=== PATIENT | male | born 1970 | race Two or more races ===

== ENCOUNTER 2020-11-25 14:58 | Emergency (ER) | payer MEDICAID ==
[~2020-11-25] VITALS: Ht 177.8 cm; Wt 84.4 kg
[2020-11-25 15:30] LABS: Basophils # (auto) 0.1 10 ^3/uL (0-0.2); Basophils % (auto) 0.7 % (0.0-2.0); Eosinophils # (auto) 0.1 10 ^3/uL (0-0.8); Eosinophils % (auto) 0.7 % (0.0-7.0); Hematocrit 44.7 % (41.0-53.0); Hemoglobin 15.2 g/dL (13.5-17.5); Lymphocytes # (auto) 1.5 10 ^3/uL (0.4-5.4); Lymphocytes % (auto) 14.7 % (10.0-50.0); Mean Corpuscular Volume 88.2 fL (80.0-100.0); Monocytes # (auto) 0.7 10 ^3/uL (0-1.3); Monocytes % (auto) 6.5 % (0.0-12.0); Neutrophils # (auto) 7.8 10 ^3/uL (1.6-8.6); Neutrophils % (auto) 77.4 % (37.0-80.0); Nucleated Red Blood Cells % 0.1 %; Platelet Count (auto) 253 10^3/uL (140-450); Red Blood Cells 5.07 10^6/uL (4.5-5.90); Red Cell Distribution Width 14.5 % (11.8-14.3); White Blood Cell 10.1 10^3/uL (4.4-10.8)
[2020-11-25 15:48] LABS: Albumin 2.8 g/dL (3.4-5.0); Anion Gap 9 (5-15); Blood Urea Nitrogen 19 mg/dL (7-18); Calcium 8.6 mg/dL (8.5-10.1); Carbon Dioxide 26 mmol/L (21-32); Chloride 100 mmol/L (98-107); Potassium 4.6 mmol/L (3.5-5.1); Sodium 135 mmol/L (136-145)
[2020-11-25 15:53] LABS: Alanine Aminotransferase 11 U/L (16-61); Alkaline Phosphatase 85 U/L (45-117); Aspartate Aminotransferase < 3 U/L (15-37); BUN/Creatinine Ratio 21.1; Bilirubin, Total 0.5 mg/dL (0.2-1.0); GFR African American 114 mL/min; GFR Non-African American 95 mL/min; Total Protein 7.6 g/dL (6.4-8.2)
[2020-11-25 17:22] LABS: Glucose 415 mg/dL (74-106)
[2020-11-25 18:59] VITALS: BP 123/86
[2020-11-25] MEDS ORDERED: THIAMINE 100mg/ml INJ (200mg/2ml VIAL) ONE (20:38)
[2020-11-25] MEDS ORDERED: InsuLIN REG 1unit/0.01ml Soln (100units/ml) SC ONE (21:15)
== END 2020-11-26 03:50 | disposition home or self-care (01) ==
LOC: ER 15:00
DX: J02.9 Acute pharyngitis, unspecified (principal); E11.65 Type 2 diabetes mellitus with hyperglycemia; I10 Essential (primary) hypertension; F17.210 Nicotine dependence, cigarettes, uncomplicated; Z20.828 Contact with and (suspected) exposure to other viral communicable diseases; Z88.8 Allergy status to other drugs, medicaments and biological substances
CPT/HCPCS: 36415; 71045; 80053; 82962; 84484; 85025; 87426; 93005; 99285; C9803; J3411; U0003

== ENCOUNTER 2021-09-23 16:43 | Emergency (ER) | payer MEDICAID ==
[~2021-09-23] VITALS: Ht 177.8 cm; Wt 77.1 kg
[2021-09-23 16:56] VITALS: BP 114/78
== END 2021-09-23 22:27 | disposition left against medical advice (07) ==
LOC: ER 16:43
DX: Z48.01 Encounter for change or removal of surgical wound dressing (principal); Z53.21 Procedure and treatment not carried out due to patient leaving prior to being seen by health care provider

== ENCOUNTER 2021-10-06 15:09 | Inpatient (IN) | payer MEDICAID ==
[~2021-10-06] VITALS: Ht 177.8 cm; Wt 89.5 kg
[2021-10-06] MEDS ORDERED: PIPERACILLIN-TAZOB 3.375GM 100 ML IV ONE (17:00)
[2021-10-06 18:11] LABS: Basophils # (auto) 0.1 10 ^3/uL (0-0.2); Basophils % (auto) 0.5 % (0.0-2.0); Eosinophils # (auto) 0.1 10 ^3/uL (0-0.8); Eosinophils % (auto) 0.9 % (0.0-7.0); Hematocrit 40.7 % (41.0-53.0); Hemoglobin 13.2 g/dL (13.5-17.5); Lymphocytes # (auto) 1.6 10 ^3/uL (0.4-5.4); Lymphocytes % (auto) 11.7 % (10.0-50.0); Mean Corpuscular Hemoglobin 27.8 pg (28.0-32.0); Mean Corpuscular Hgb Conc. 32.4 g/dL (32.0-36.0); Mean Corpuscular Volume 85.9 fL (80.0-100.0); Monocytes % (auto) 7.3 % (0.0-12.0); Neutrophils # (auto) 10.7 10 ^3/uL (1.6-8.6); Neutrophils % (auto) 79.6 % (37.0-80.0); Nucleated Red Blood Cells % 0.1 %; Red Blood Cells 4.74 10^6/uL (4.5-5.90); Red Cell Distribution Width 14.1 % (11.8-14.3); White Blood Cell 13.5 10^3/uL (4.4-10.8)
[2021-10-06 18:31] LABS: Alanine Aminotransferase 9 U/L (16-61); Albumin 1.9 g/dL (3.4-5.0); Anion Gap 9 (5-15); Aspartate Aminotransferase 8 U/L (15-37); Blood Urea Nitrogen 15 mg/dL (7-18); Calcium 8.5 mg/dL (8.5-10.1); Carbon Dioxide 27 mmol/L (21-32); Chloride 100 mmol/L (98-107); GFR African American 141 mL/min; GFR Non-African American 116 mL/min; Glucose 319 mg/dL (74-106); Potassium 3.8 mmol/L (3.5-5.1); Sodium 136 mmol/L (136-145)
[2021-10-06 18:34] LABS: Alkaline Phosphatase 91 U/L (45-117); Bilirubin, Total 0.3 mg/dL (0.2-1.0); Total Protein 7.3 g/dL (6.4-8.2)
[2021-10-06] MEDS ORDERED: MORPHINE SULFATE INJECTION 2 MG/ML SYRG IV ONE (19:00)
[2021-10-06] MEDS ORDERED: SODIUM CHLORIDE 0.9% 1,000 ML IV ONE (19:00)
[2021-10-06] MEDS ORDERED: VANCOMYCIN PER PHARMACY 0 MG IV SCH (19:45)
[2021-10-06] MEDS ORDERED: MORPHINE SULFATE INJECTION 2 MG/ML SYRG IV PRN (19:45)
[2021-10-06] MEDS ORDERED: DEXTROSE (50%) 50ML SYRG IV PRN (19:45)
[2021-10-06] MEDS ORDERED: ONDANSETRON HCL 4 MG/2 ML VIAL IV PRN (19:45)
[2021-10-06] MEDS ORDERED: SODIUM CHLORIDE 0.9% 1,000 ML IV SCH (19:45)
[2021-10-06] MEDS ORDERED: LORazepam 0.5 MG TAB PO PRN (19:45)
[2021-10-06] MEDS: InsuLIN REG 1unit/0.01ml Soln (100units/ml) SC SCH (20:15)
[2021-10-06] MEDS: ACCU-CHEK COMFORT CURVE STRIP VI SCH (20:18)
[2021-10-06] MEDS: ACETAMINOPHEN 325 MG TAB PO PRN (20:32)
[2021-10-06] MEDS ORDERED: VANCOMYCIN 1GM/250ML 250 ML IV ONE (21:00)
[2021-10-06 23:30] VITALS: BP 94/58
[2021-10-06 23:35] VITALS: BP 94/58
[2021-10-07] MEDS: ACCU-CHEK COMFORT CURVE STRIP VI SCH ×7 (00:25→23:45)
[2021-10-07] MEDS: InsuLIN REG 1unit/0.01ml Soln (100units/ml) SC SCH ×7 (00:29→23:49)
[2021-10-07] MEDS: HYDROmorphone HCL 2 MG/ML VL IV PRN ×2 (01:02→08:42)
[2021-10-07] MEDS ORDERED: METF-869 PO (01:08)
[2021-10-07] MEDS ORDERED: INSUINJ37 SC (01:08)
[2021-10-07 05:00] VITALS: BP 116/69
[2021-10-07] MEDS: PIPERACILLIN-TAZOB 3.375GM 100 ML IV SCH ×3 (06:22→21:19)
[2021-10-07 07:00] LABS: Basophils # (auto) 0.1 10 ^3/uL (0-0.2); Basophils % (auto) 0.6 % (0.0-2.0); Eosinophils # (auto) 0.1 10 ^3/uL (0-0.8); Eosinophils % (auto) 0.8 % (0.0-7.0); Hematocrit 36.9 % (41.0-53.0); Hemoglobin 12.2 g/dL (13.5-17.5); Lymphocytes # (auto) 1.8 10 ^3/uL (0.4-5.4); Lymphocytes % (auto) 15.4 % (10.0-50.0); Mean Corpuscular Hemoglobin 28.2 pg (28.0-32.0); Mean Corpuscular Volume 85.5 fL (80.0-100.0); Monocytes # (auto) 1.3 10 ^3/uL (0-1.3); Monocytes % (auto) 11.1 % (0.0-12.0); Neutrophils # (auto) 8.2 10 ^3/uL (1.6-8.6); Neutrophils % (auto) 72.1 % (37.0-80.0); Nucleated Red Blood Cells % 0.1 %; Red Blood Cells 4.32 10^6/uL (4.5-5.90); White Blood Cell 11.4 10^3/uL (4.4-10.8)
[2021-10-07 07:13] LABS: Calcium 8.3 mg/dL (8.5-10.1); Potassium 3.5 mmol/L (3.5-5.1)
[2021-10-07 08:37] VITALS: BP 150/82
[2021-10-07] MEDS: VANCOMYCIN 1GM/250ML 250 ML IV SCH ×2 (10:18→18:24)
[2021-10-07] MEDS: HYDROcodone-ACET 5/325MG TAB PO PRN (12:06)
[2021-10-07 12:42] VITALS: BP 149/73
[2021-10-07 16:37] VITALS: BP 130/67
[2021-10-07 22:00] VITALS: BP 164/78
[2021-10-07 23:28] VITALS: BP 154/81
[2021-10-08] MEDS: VANCOMYCIN 1GM/250ML 250 ML IV SCH ×3 (02:22→19:56)
[2021-10-08] MEDS: ACCU-CHEK COMFORT CURVE STRIP VI SCH ×5 (03:56→19:57)
[2021-10-08] MEDS: InsuLIN REG 1unit/0.01ml Soln (100units/ml) SC SCH ×5 (04:05→20:24)
[2021-10-08 05:00] VITALS: BP 157/81
[2021-10-08] MEDS: PIPERACILLIN-TAZOB 3.375GM 100 ML IV SCH ×3 (06:15→21:44)
[2021-10-08 06:53] LABS: Basophils # (auto) 0.1 10 ^3/uL (0-0.2); Basophils % (auto) 0.4 % (0.0-2.0); Eosinophils # (auto) 0 10 ^3/uL (0-0.8); Eosinophils % (auto) 0.4 % (0.0-7.0); Hematocrit 36.8 % (41.0-53.0); Hemoglobin 12.2 g/dL (13.5-17.5); Lymphocytes # (auto) 1.4 10 ^3/uL (0.4-5.4); Lymphocytes % (auto) 10.5 % (10.0-50.0); Mean Corpuscular Hemoglobin 28.2 pg (28.0-32.0); Mean Corpuscular Hgb Conc. 33.3 g/dL (32.0-36.0); Mean Corpuscular Volume 84.8 fL (80.0-100.0); Monocytes # (auto) 1.1 10 ^3/uL (0-1.3); Monocytes % (auto) 7.9 % (0.0-12.0); Neutrophils # (auto) 10.8 10 ^3/uL (1.6-8.6); Neutrophils % (auto) 80.8 % (37.0-80.0); Red Blood Cells 4.34 10^6/uL (4.5-5.90); Red Cell Distribution Width 14.1 % (11.8-14.3); White Blood Cell 13.3 10^3/uL (4.4-10.8)
[2021-10-08 07:11] LABS: Potassium 3.3 mmol/L (3.5-5.1)
[2021-10-08 08:30] VITALS: BP 127/75
[2021-10-08 12:30] VITALS: BP 139/78
[2021-10-08] MEDS: HYDROcodone-ACET 5/325MG TAB PO PRN (13:57)
[2021-10-08] MEDS ORDERED: POTASSIUM CHL 20 Meq TABLET PO ONE (16:30)
[2021-10-08] MEDS ORDERED: ASPirin 81 mg TAB PO ONE (16:30)
[2021-10-08] MEDS ORDERED: NICOTINE 7MG/24HR TOPICAL PATCH TD ONE (16:45)
[2021-10-08] MEDS ORDERED: GABAPENTIN 300 MG CAP PO ONE (16:45)
[2021-10-08 17:00] VITALS: BP 124/66
[2021-10-08] MEDS: ATORVASTATIN 20 MG TAB PO SCH (21:44)
[2021-10-08] MEDS: GABAPENTIN 300 MG CAP PO SCH (21:44)
[2021-10-08 22:00] VITALS: BP 133/78
[2021-10-09] MEDS: ACCU-CHEK COMFORT CURVE STRIP VI SCH ×6 (00:07→20:35)
[2021-10-09] MEDS: InsuLIN REG 1unit/0.01ml Soln (100units/ml) SC SCH ×6 (00:11→20:37)
[2021-10-09] MEDS: HYDROcodone-ACET 5/325MG TAB PO PRN ×3 (04:29→20:22)
[2021-10-09 05:00] VITALS: BP 117/72
[2021-10-09] MEDS: GABAPENTIN 300 MG CAP PO SCH ×3 (06:03→22:25)
[2021-10-09] MEDS: PIPERACILLIN-TAZOB 3.375GM 100 ML IV SCH ×3 (06:04→22:25)
[2021-10-09 09:00] VITALS: BP 145/79
[2021-10-09] MEDS: NICOTINE 7MG/24HR TOPICAL PATCH TD SCH (10:00)
[2021-10-09] MEDS: ASPirin 81 mg TAB PO SCH (10:03)
[2021-10-09 13:00] VITALS: BP 117/68
[2021-10-09] MEDS ORDERED: PROPOFOL 10 MG/ML 20 ML IV ONE ×3 (13:38→13:39)
[2021-10-09 15:03] LABS: INR 1.07 (0.9-1.15); Partial Thromboplastin Time 28.5 sec (23.6-33.0)
[2021-10-09] MEDS ORDERED: LIDOCAINE 1% (LOCAL ANESTH.) PF 5ml SDV ID ONE (16:30)
[2021-10-09] MEDS: VANCOMYCIN 1GM/250ML 250 ML IV SCH (20:35)
[2021-10-09 21:59] VITALS: BP 137/78
[2021-10-09] MEDS: SODIUM CHLOR 0.9% PF (SALINE LOCK) 10ML VIAL/SYR IV SCH (22:18)
[2021-10-09] MEDS: ATORVASTATIN 20 MG TAB PO SCH (22:25)
[2021-10-10] MEDS: InsuLIN REG 1unit/0.01ml Soln (100units/ml) SC SCH ×6 (03:53→20:01)
[2021-10-10] MEDS: ACCU-CHEK COMFORT CURVE STRIP VI SCH ×6 (03:55→19:53)
[2021-10-10 05:06] VITALS: BP 108/70
[2021-10-10] MEDS: GABAPENTIN 300 MG CAP PO SCH ×3 (05:52→21:47)
[2021-10-10] MEDS: PIPERACILLIN-TAZOB 3.375GM 100 ML IV SCH ×3 (05:52→21:46)
[2021-10-10] MEDS ORDERED: methylPREDNISolone SOD SUCC 125 MG/2 ML VL ONE (08:13)
[2021-10-10] MEDS ORDERED: fentaNYL CITRATE 100 MCG/2 ML VL ONE ×2 (08:13→11:33)
[2021-10-10] MEDS ORDERED: ANGIOMAX 250 MG VIAL IV ONE ×2 (08:13→09:31)
[2021-10-10] MEDS ORDERED: MIDAZOLAM HCL 2MG/2ML 2ml VIAL (1mg/ml) ONE ×3 (08:13→11:33)
[2021-10-10] MEDS ORDERED: diphenhdrAMINE HCL 50 MG/1 ML VL ONE (08:13)
[2021-10-10] MEDS ORDERED: FAMOTIDINE (10MG/ML) 2ML VL IV ONE (08:14)
[2021-10-10] MEDS ORDERED: SODIUM CHL 0.9% 50 ML ONE ×2 (08:14→09:31)
[2021-10-10] MEDS ORDERED: LIDOCAINE 2%HCL (LOCAL ANESTH.) INJ 20ML MDV ONE (08:18)
[2021-10-10] MEDS ORDERED: ATROPINE SULF 1 MG/10ml SYR ONE (08:29)
[2021-10-10] MEDS ORDERED: EPINEPHrine HCL 1 MG/10 ML SYRG ONE (08:29)
[2021-10-10] MEDS ORDERED: ROPIVACAINE 0.5% (5MG/ML) 20ML AMPULE IJ ONE (08:47)
[2021-10-10] MEDS ORDERED: CHLORHEXIDINE 4% TOPICAL soln 118ml TOP ONE (08:54)
[2021-10-10] MEDS ORDERED: IODIXANOL 320MG/ML 100ML BTL IV ONE (09:56)
[2021-10-10] MEDS: SODIUM CHLOR 0.9% PF (SALINE LOCK) 10ML VIAL/SYR IV SCH ×2 (10:00→21:35)
[2021-10-10] MEDS: NICOTINE 7MG/24HR TOPICAL PATCH TD SCH (10:00)
[2021-10-10] MEDS: ASPirin 81 mg TAB PO SCH (10:00)
[2021-10-10] MEDS ORDERED: PROPOFOL 10 MG/ML 20 ML IV ONE (12:09)
[2021-10-10] MEDS ORDERED: ceFAZolin 1GM VL ONE (12:11)
[2021-10-10] MEDS ORDERED: ONDANSETRON HCL 4 MG/2 ML VIAL ONE (12:19)
[2021-10-10] MEDS ORDERED: ONDANSETRON HCL 4 MG/2 ML VIAL IV PRN (13:00)
[2021-10-10] MEDS ORDERED: HYDROmorphone HCL 2 MG/ML VL IV PRN (13:00)
[2021-10-10 16:59] VITALS: BP 111/64
[2021-10-10] MEDS: VANCOMYCIN 1GM/250ML 250 ML IV SCH (20:07)
[2021-10-10] MEDS: ATORVASTATIN 20 MG TAB PO SCH (21:46)
[2021-10-10 22:00] VITALS: BP 102/63
[2021-10-11] MEDS: ACCU-CHEK COMFORT CURVE STRIP VI SCH ×6 (00:28→19:53)
[2021-10-11] MEDS: InsuLIN REG 1unit/0.01ml Soln (100units/ml) SC SCH ×6 (00:29→19:54)
[2021-10-11 05:00] VITALS: BP 138/62
[2021-10-11] MEDS: GABAPENTIN 300 MG CAP PO SCH ×3 (06:32→21:47)
[2021-10-11] MEDS: PIPERACILLIN-TAZOB 3.375GM 100 ML IV SCH ×3 (06:33→21:47)
[2021-10-11 09:00] VITALS: BP 123/51
[2021-10-11] MEDS: NICOTINE 7MG/24HR TOPICAL PATCH TD SCH (10:00)
[2021-10-11] MEDS: ASPirin 81 mg TAB PO SCH (11:09)
[2021-10-11] MEDS: SODIUM CHLOR 0.9% PF (SALINE LOCK) 10ML VIAL/SYR IV SCH ×2 (11:10→21:47)
[2021-10-11 13:00] VITALS: BP 149/80
[2021-10-11] MEDS: HYDROcodone-ACET 5/325MG TAB PO PRN ×2 (13:43→18:55)
[2021-10-11 17:00] VITALS: BP 133/70
[2021-10-11] MEDS: VANCOMYCIN 1GM/250ML 250 ML IV SCH (19:53)
[2021-10-11] MEDS: ATORVASTATIN 20 MG TAB PO SCH (21:48)
[2021-10-11 22:00] VITALS: BP 132/75
[2021-10-12] MEDS: ACCU-CHEK COMFORT CURVE STRIP VI SCH ×7 (00:07→23:55)
[2021-10-12] MEDS: InsuLIN REG 1unit/0.01ml Soln (100units/ml) SC SCH ×7 (00:12→23:55)
[2021-10-12 05:00] VITALS: BP 126/73
[2021-10-12] MEDS: PIPERACILLIN-TAZOB 3.375GM 100 ML IV SCH ×2 (05:36→08:03)
[2021-10-12] MEDS: GABAPENTIN 300 MG CAP PO SCH ×3 (05:36→21:00)
[2021-10-12] MEDS: HYDROcodone-ACET 5/325MG TAB PO PRN (05:37)
[2021-10-12 09:00] VITALS: BP 126/68
[2021-10-12] MEDS ORDERED: ANGIOMAX 250 MG VIAL IV ONE (09:31)
[2021-10-12] MEDS ORDERED: methylPREDNISolone SOD SUCC 125 MG/2 ML VL ONE (09:31)
[2021-10-12] MEDS ORDERED: FAMOTIDINE (10MG/ML) 2ML VL IV ONE (09:32)
[2021-10-12] MEDS ORDERED: SODIUM CHL 0.9% 50 ML ONE (09:32)
[2021-10-12] MEDS ORDERED: fentaNYL CITRATE 100 MCG/2 ML VL ONE (09:32)
[2021-10-12] MEDS ORDERED: diphenhdrAMINE HCL 50 MG/1 ML VL ONE (09:32)
[2021-10-12] MEDS ORDERED: MIDAZOLAM HCL 2MG/2ML 2ml VIAL (1mg/ml) ONE (09:32)
[2021-10-12] MEDS ORDERED: LIDOCAINE 2%HCL (LOCAL ANESTH.) INJ 20ML MDV ONE (09:38)
[2021-10-12] MEDS: SODIUM CHLOR 0.9% PF (SALINE LOCK) 10ML VIAL/SYR IV SCH ×2 (10:00→21:00)
[2021-10-12] MEDS ORDERED: IODIXANOL 320MG/ML 100ML BTL IV ONE ×2 (10:23→10:34)
[2021-10-12 10:42] LABS: Basophils # (auto) 0.1 10 ^3/uL (0-0.2); Basophils % (auto) 0.5 % (0.0-2.0); Eosinophils # (auto) 0.3 10 ^3/uL (0-0.8); Eosinophils % (auto) 2.4 % (0.0-7.0); Hematocrit 32.6 % (41.0-53.0); Hemoglobin 10.8 g/dL (13.5-17.5); Lymphocytes # (auto) 1.5 10 ^3/uL (0.4-5.4); Lymphocytes % (auto) 13.4 % (10.0-50.0); Mean Corpuscular Hemoglobin 28.1 pg (28.0-32.0); Mean Corpuscular Hgb Conc. 33.2 g/dL (32.0-36.0); Mean Corpuscular Volume 84.7 fL (80.0-100.0); Monocytes # (auto) 0.9 10 ^3/uL (0-1.3); Monocytes % (auto) 8.2 % (0.0-12.0); Neutrophils # (auto) 8.3 10 ^3/uL (1.6-8.6); Neutrophils % (auto) 75.5 % (37.0-80.0); Red Blood Cells 3.85 10^6/uL (4.5-5.90); Red Cell Distribution Width 13.9 % (11.8-14.3)
[2021-10-12 10:55] LABS: INR 1.06 (0.9-1.15); Partial Thromboplastin Time 27.2 sec (23.6-33.0)
[2021-10-12 11:08] LABS: Calcium 7.7 mg/dL (8.5-10.1); Potassium 3.8 mmol/L (3.5-5.1)
[2021-10-12] MEDS: NICOTINE 7MG/24HR TOPICAL PATCH TD SCH (12:43)
[2021-10-12] MEDS: ASPirin 81 mg TAB PO SCH (12:43)
[2021-10-12 13:00] VITALS: BP 136/79
[2021-10-12] MEDS: VANCOMYCIN 1GM/250ML 250 ML IV SCH (16:19)
[2021-10-12 17:00] VITALS: BP 116/73
[2021-10-12] MEDS: RIVAROXABAN 10 MG TAB PO SCH (21:00)
[2021-10-12] MEDS: ATORVASTATIN 20 MG TAB PO SCH (21:00)
[2021-10-12 22:00] VITALS: BP 129/75
[2021-10-13] MEDS: ACCU-CHEK COMFORT CURVE STRIP VI SCH ×6 (03:38→23:42)
[2021-10-13] MEDS: InsuLIN REG 1unit/0.01ml Soln (100units/ml) SC SCH ×6 (03:44→23:46)
[2021-10-13 05:00] VITALS: BP 129/72
[2021-10-13] MEDS: GABAPENTIN 300 MG CAP PO SCH ×3 (07:41→21:07)
[2021-10-13 09:00] VITALS: BP 134/76
[2021-10-13] MEDS: NICOTINE 7MG/24HR TOPICAL PATCH TD SCH (10:00)
[2021-10-13] MEDS: SODIUM CHLOR 0.9% PF (SALINE LOCK) 10ML VIAL/SYR IV SCH ×2 (10:00→21:06)
[2021-10-13] MEDS: ASPirin 81 mg TAB PO SCH (10:00)
[2021-10-13] MEDS: RIVAROXABAN 10 MG TAB PO SCH ×2 (10:00→21:07)
[2021-10-13] MEDS: HYDROcodone-ACET 5/325MG TAB PO PRN (10:07)
[2021-10-13] MEDS: VANCOMYCIN 1GM/250ML 250 ML IV SCH (11:39)
[2021-10-13 13:19] VITALS: BP 136/79
[2021-10-13 17:25] VITALS: BP 127/72
[2021-10-13] MEDS: ATORVASTATIN 20 MG TAB PO SCH (21:07)
[2021-10-13 22:00] VITALS: BP 135/80
[2021-10-14] MEDS: HYDROcodone-ACET 5/325MG TAB PO PRN ×4 (03:54→20:42)
[2021-10-14] MEDS: ACCU-CHEK COMFORT CURVE STRIP VI SCH ×5 (04:24→20:00)
[2021-10-14] MEDS: InsuLIN REG 1unit/0.01ml Soln (100units/ml) SC SCH ×5 (04:25→20:00)
[2021-10-14 05:00] VITALS: BP 146/85
[2021-10-14] MEDS: GABAPENTIN 300 MG CAP PO SCH ×3 (05:06→22:09)
[2021-10-14 06:51] LABS: Basophils # (auto) 0.1 10 ^3/uL (0-0.2); Basophils % (auto) 0.4 % (0.0-2.0); Eosinophils # (auto) 0.3 10 ^3/uL (0-0.8); Eosinophils % (auto) 2.4 % (0.0-7.0); Hemoglobin 11.4 g/dL (13.5-17.5); Lymphocytes # (auto) 2.3 10 ^3/uL (0.4-5.4); Lymphocytes % (auto) 17.6 % (10.0-50.0); Mean Corpuscular Hemoglobin 27.7 pg (28.0-32.0); Mean Corpuscular Hgb Conc. 32.5 g/dL (32.0-36.0); Mean Corpuscular Volume 85.3 fL (80.0-100.0); Monocytes % (auto) 7.5 % (0.0-12.0); Neutrophils # (auto) 9.3 10 ^3/uL (1.6-8.6); Neutrophils % (auto) 72.1 % (37.0-80.0); Red Cell Distribution Width 13.9 % (11.8-14.3)
[2021-10-14 07:11] LABS: Calcium 7.9 mg/dL (8.5-10.1); Potassium 4.5 mmol/L (3.5-5.1)
[2021-10-14 07:14] LABS: BUN/Creatinine Ratio 27.6
[2021-10-14] MEDS: VANCOMYCIN 1GM/250ML 250 ML IV SCH (08:00)
[2021-10-14] MEDS: SODIUM CHLOR 0.9% PF (SALINE LOCK) 10ML VIAL/SYR IV SCH ×2 (08:59→22:09)
[2021-10-14 09:00] VITALS: BP 103/62
[2021-10-14] MEDS: ASPirin 81 mg TAB PO SCH (09:00)
[2021-10-14] MEDS: NICOTINE 7MG/24HR TOPICAL PATCH TD SCH (09:00)
[2021-10-14] MEDS: RIVAROXABAN 10 MG TAB PO SCH ×2 (09:00→22:09)
[2021-10-14 17:00] VITALS: BP 138/76
[2021-10-14] MEDS: ATORVASTATIN 20 MG TAB PO SCH (22:09)
[2021-10-14 22:12] VITALS: BP 148/82
[2021-10-15] MEDS: InsuLIN REG 1unit/0.01ml Soln (100units/ml) SC SCH ×6 (00:17→20:26)
[2021-10-15] MEDS: ACCU-CHEK COMFORT CURVE STRIP VI SCH ×6 (00:18→20:00)
[2021-10-15] MEDS: VANCOMYCIN 1GM/250ML 250 ML IV SCH ×2 (01:49→20:25)
[2021-10-15] MEDS: HYDROcodone-ACET 5/325MG TAB PO PRN ×3 (02:00→17:47)
[2021-10-15 05:00] VITALS: BP 125/72
[2021-10-15] MEDS: GABAPENTIN 300 MG CAP PO SCH ×3 (06:00→22:16)
[2021-10-15 08:00] VITALS: BP 145/85
[2021-10-15 08:15] VITALS: BP 129/72
[2021-10-15] MEDS: NICOTINE 7MG/24HR TOPICAL PATCH TD SCH (10:00)
[2021-10-15] MEDS: SODIUM CHLOR 0.9% PF (SALINE LOCK) 10ML VIAL/SYR IV SCH ×2 (10:00→22:15)
[2021-10-15] MEDS: RIVAROXABAN 10 MG TAB PO SCH ×2 (10:34→22:15)
[2021-10-15] MEDS: ASPirin 81 mg TAB PO SCH (10:34)
[2021-10-15] MEDS: DOCUSATE SOD 100 MG CAP PO PRN (10:39)
[2021-10-15 12:00] VITALS: BP 148/82
[2021-10-15 16:00] VITALS: BP 159/98
[2021-10-15 22:00] VITALS: BP 168/94
[2021-10-15] MEDS: ATORVASTATIN 20 MG TAB PO SCH (22:15)
[2021-10-16] MEDS: InsuLIN REG 1unit/0.01ml Soln (100units/ml) SC SCH ×6 (04:00→20:00)
[2021-10-16] MEDS: ACCU-CHEK COMFORT CURVE STRIP VI SCH ×6 (04:00→20:00)
[2021-10-16 05:00] VITALS: BP 133/70
[2021-10-16] MEDS: GABAPENTIN 300 MG CAP PO SCH ×3 (06:00→22:00)
[2021-10-16 06:45] LABS: Basophils # (auto) 0.1 10 ^3/uL (0-0.2); Basophils % (auto) 0.6 % (0.0-2.0); Eosinophils # (auto) 0.4 10 ^3/uL (0-0.8); Eosinophils % (auto) 2.9 % (0.0-7.0); Hematocrit 32.7 % (41.0-53.0); Hemoglobin 10.8 g/dL (13.5-17.5); Lymphocytes # (auto) 1.4 10 ^3/uL (0.4-5.4); Mean Corpuscular Hemoglobin 27.6 pg (28.0-32.0); Mean Corpuscular Hgb Conc. 32.9 g/dL (32.0-36.0); Mean Corpuscular Volume 83.8 fL (80.0-100.0); Monocytes % (auto) 7.4 % (0.0-12.0); Neutrophils # (auto) 10.2 10 ^3/uL (1.6-8.6); Neutrophils % (auto) 78.1 % (37.0-80.0); Red Blood Cells 3.91 10^6/uL (4.5-5.90); Red Cell Distribution Width 13.7 % (11.8-14.3)
[2021-10-16 06:53] LABS: BUN/Creatinine Ratio 27.3; Calcium 7.6 mg/dL (8.5-10.1); Magnesium 1.9 mg/dL (1.6-2.6); Potassium 3.9 mmol/L (3.5-5.1)
[2021-10-16 09:00] VITALS: BP 123/67
[2021-10-16] MEDS: SODIUM CHLOR 0.9% PF (SALINE LOCK) 10ML VIAL/SYR IV SCH ×2 (09:24→22:00)
[2021-10-16] MEDS: RIVAROXABAN 10 MG TAB PO SCH ×2 (09:25→22:00)
[2021-10-16] MEDS: ASPirin 81 mg TAB PO SCH (09:25)
[2021-10-16] MEDS: NICOTINE 7MG/24HR TOPICAL PATCH TD SCH ×2 (09:26→09:33)
[2021-10-16] MEDS: HYDROcodone-ACET 5/325MG TAB PO PRN (11:34)
[2021-10-16 12:00] VITALS: BP 129/69
[2021-10-16] MEDS ORDERED: VANCOMYCIN 1GM/250ML 250 ML IV ONE (15:00)
[2021-10-16 16:00] VITALS: BP 124/73
[2021-10-16] MEDS: ATORVASTATIN 20 MG TAB PO SCH (23:34)
[2021-10-17] MEDS: ACCU-CHEK COMFORT CURVE STRIP VI SCH ×6 (04:00→20:29)
[2021-10-17] MEDS: InsuLIN REG 1unit/0.01ml Soln (100units/ml) SC SCH ×6 (04:00→20:00)
[2021-10-17] MEDS: HYDROcodone-ACET 5/325MG TAB PO PRN ×4 (04:27→21:00)
[2021-10-17] MEDS: VANCOMYCIN 1GM/250ML 250 ML IV SCH ×2 (05:55→20:59)
[2021-10-17] MEDS: GABAPENTIN 300 MG CAP PO SCH ×3 (05:56→22:26)
[2021-10-17 06:29] VITALS: BP 153/83
[2021-10-17] MEDS: ASPirin 81 mg TAB PO SCH (08:41)
[2021-10-17] MEDS: SODIUM CHLOR 0.9% PF (SALINE LOCK) 10ML VIAL/SYR IV SCH ×2 (08:41→22:26)
[2021-10-17] MEDS: NICOTINE 7MG/24HR TOPICAL PATCH TD SCH (08:42)
[2021-10-17] MEDS: RIVAROXABAN 10 MG TAB PO SCH ×2 (08:42→22:26)
[2021-10-17] MEDS: DOCUSATE SOD 100 MG CAP PO PRN (08:49)
[2021-10-17 09:00] VITALS: BP 113/64
[2021-10-17 13:00] VITALS: BP 137/74
[2021-10-17 17:00] VITALS: BP 135/72
[2021-10-17 22:00] VITALS: BP 157/82
[2021-10-17] MEDS: ATORVASTATIN 20 MG TAB PO SCH (22:26)
[2021-10-18] VITALS (7 sets, daily range): BP systolic 104–168; BP diastolic 64–85
[2021-10-18] MEDS: InsuLIN REG 1unit/0.01ml Soln (100units/ml) SC SCH ×6 (00:35→20:18)
[2021-10-18] MEDS: HYDROcodone-ACET 5/325MG TAB PO PRN ×4 (01:00→22:41)
[2021-10-18] MEDS: ACCU-CHEK COMFORT CURVE STRIP VI SCH ×6 (04:04→20:16)
[2021-10-18] MEDS: GABAPENTIN 300 MG CAP PO SCH ×3 (05:40→22:40)
[2021-10-18] MEDS: SODIUM CHLOR 0.9% PF (SALINE LOCK) 10ML VIAL/SYR IV SCH ×2 (08:47→22:40)
[2021-10-18] MEDS: ASPirin 81 mg TAB PO SCH (08:47)
[2021-10-18] MEDS: NICOTINE 7MG/24HR TOPICAL PATCH TD SCH (08:47)
[2021-10-18] MEDS: RIVAROXABAN 10 MG TAB PO SCH ×2 (08:47→22:41)
[2021-10-18] MEDS: ceFAZolin 1GM/50ML 50 ML IV SCH ×2 (13:34→22:40)
[2021-10-18] MEDS: ATORVASTATIN 20 MG TAB PO SCH (22:40)
[2021-10-19] VITALS (7 sets, daily range): BP systolic 113–158; BP diastolic 60–82
[2021-10-19] MEDS: InsuLIN REG 1unit/0.01ml Soln (100units/ml) SC SCH ×7 (00:34→23:36)
[2021-10-19] MEDS: ACCU-CHEK COMFORT CURVE STRIP VI SCH ×7 (04:16→23:32)
[2021-10-19] MEDS: GABAPENTIN 300 MG CAP PO SCH ×3 (06:00→21:50)
[2021-10-19] MEDS: ceFAZolin 1GM/50ML 50 ML IV SCH ×3 (06:00→21:50)
[2021-10-19] MEDS: RIVAROXABAN 10 MG TAB PO SCH ×2 (09:35→21:50)
[2021-10-19] MEDS: ASPirin 81 mg TAB PO SCH (09:35)
[2021-10-19] MEDS: DOCUSATE SOD 100 MG CAP PO PRN (09:36)
[2021-10-19] MEDS: SODIUM CHLOR 0.9% PF (SALINE LOCK) 10ML VIAL/SYR IV SCH ×2 (09:36→21:56)
[2021-10-19] MEDS: NICOTINE 7MG/24HR TOPICAL PATCH TD SCH (09:36)
[2021-10-19] MEDS: HYDROcodone-ACET 5/325MG TAB PO PRN ×3 (09:45→23:14)
[2021-10-19] MEDS: ATORVASTATIN 20 MG TAB PO SCH (21:50)
[2021-10-20] MEDS: ACCU-CHEK COMFORT CURVE STRIP VI SCH ×5 (04:09→20:00)
[2021-10-20] MEDS: InsuLIN REG 1unit/0.01ml Soln (100units/ml) SC SCH ×5 (04:12→20:00)
[2021-10-20 05:10] VITALS: BP 147/73
[2021-10-20] MEDS: ceFAZolin 1GM/50ML 50 ML IV SCH ×3 (05:56→22:39)
[2021-10-20] MEDS: GABAPENTIN 300 MG CAP PO SCH ×3 (05:56→22:40)
[2021-10-20 08:00] VITALS: BP 116/67
[2021-10-20 09:00] VITALS: BP 116/67
[2021-10-20] MEDS: ASPirin 81 mg TAB PO SCH (10:13)
[2021-10-20] MEDS: RIVAROXABAN 10 MG TAB PO SCH ×2 (10:13→22:40)
[2021-10-20] MEDS: SODIUM CHLOR 0.9% PF (SALINE LOCK) 10ML VIAL/SYR IV SCH ×2 (10:14→22:40)
[2021-10-20] MEDS: HYDROcodone-ACET 5/325MG TAB PO PRN ×2 (10:29→23:05)
[2021-10-20] MEDS: DOCUSATE SOD 100 MG CAP PO PRN (11:44)
[2021-10-20 13:00] VITALS: BP 148/75
[2021-10-20 17:00] VITALS: BP 119/76
[2021-10-20 22:00] VITALS: BP 147/78
[2021-10-20] MEDS: ATORVASTATIN 20 MG TAB PO SCH (22:40)
[2021-10-21] MEDS: ACCU-CHEK COMFORT CURVE STRIP VI SCH ×6 (00:35→20:28)
[2021-10-21] MEDS: InsuLIN REG 1unit/0.01ml Soln (100units/ml) SC SCH ×6 (00:36→20:28)
[2021-10-21 05:00] VITALS: BP 95/58
[2021-10-21] MEDS: ceFAZolin 1GM/50ML 50 ML IV SCH ×3 (05:32→21:55)
[2021-10-21] MEDS: GABAPENTIN 300 MG CAP PO SCH ×3 (05:32→21:55)
[2021-10-21 08:15] VITALS: BP 140/81
[2021-10-21 08:48] VITALS: BP 140/81
[2021-10-21] MEDS: RIVAROXABAN 10 MG TAB PO SCH ×2 (10:45→21:55)
[2021-10-21] MEDS: ASPirin 81 mg TAB PO SCH (10:45)
[2021-10-21] MEDS: SODIUM CHLOR 0.9% PF (SALINE LOCK) 10ML VIAL/SYR IV SCH ×2 (10:46→21:55)
[2021-10-21 12:49] VITALS: BP 144/76
[2021-10-21 16:50] VITALS: BP 134/73
[2021-10-21] MEDS: ATORVASTATIN 20 MG TAB PO SCH (21:55)
[2021-10-21 22:00] VITALS: BP 152/77
[2021-10-22] MEDS: ACCU-CHEK COMFORT CURVE STRIP VI SCH ×6 (00:26→20:39)
[2021-10-22] MEDS: InsuLIN REG 1unit/0.01ml Soln (100units/ml) SC SCH ×6 (00:26→20:39)
[2021-10-22 05:00] VITALS: BP 143/76
[2021-10-22] MEDS: GABAPENTIN 300 MG CAP PO SCH ×3 (06:17→22:23)
[2021-10-22] MEDS: ceFAZolin 1GM/50ML 50 ML IV SCH ×3 (06:17→22:23)
[2021-10-22 08:47] VITALS: BP 130/68
[2021-10-22] MEDS: RIVAROXABAN 10 MG TAB PO SCH ×2 (09:07→22:23)
[2021-10-22] MEDS: ASPirin 81 mg TAB PO SCH (09:07)
[2021-10-22] MEDS: SODIUM CHLOR 0.9% PF (SALINE LOCK) 10ML VIAL/SYR IV SCH ×2 (09:08→22:23)
[2021-10-22 13:00] VITALS: BP 149/84
[2021-10-22 17:00] VITALS: BP 134/75
[2021-10-22] MEDS: HYDROcodone-ACET 5/325MG TAB PO PRN (17:23)
[2021-10-22 22:00] VITALS: BP 126/66
[2021-10-22] MEDS: ATORVASTATIN 20 MG TAB PO SCH (22:23)
[2021-10-23] MEDS: InsuLIN REG 1unit/0.01ml Soln (100units/ml) SC SCH ×6 (00:13→20:33)
[2021-10-23] MEDS: ACCU-CHEK COMFORT CURVE STRIP VI SCH ×6 (00:14→20:00)
[2021-10-23 05:00] VITALS: BP 132/71
[2021-10-23] MEDS: GABAPENTIN 300 MG CAP PO SCH ×3 (05:58→21:57)
[2021-10-23] MEDS: ceFAZolin 1GM/50ML 50 ML IV SCH ×2 (05:58→18:01)
[2021-10-23 09:00] VITALS: BP 144/76
[2021-10-23] MEDS: RIVAROXABAN 10 MG TAB PO SCH ×2 (09:59→21:58)
[2021-10-23] MEDS: SODIUM CHLOR 0.9% PF (SALINE LOCK) 10ML VIAL/SYR IV SCH ×2 (09:59→22:00)
[2021-10-23] MEDS: ASPirin 81 mg TAB PO SCH (09:59)
[2021-10-23] MEDS ORDERED: CHLORHEXIDINE 4% TOPICAL soln 118ml TOP ONE (11:53)
[2021-10-23] MEDS ORDERED: ceFAZolin 1GM/50ML 100 ML IV ONE (11:57)
[2021-10-23] MEDS ORDERED: ceFAZolin 1GM VL ONE (12:08)
[2021-10-23] MEDS ORDERED: MIDAZOLAM HCL 2MG/2ML 2ml VIAL (1mg/ml) ONE (12:19)
[2021-10-23] MEDS ORDERED: fentaNYL CITRATE 100 MCG/2 ML VL ONE (12:19)
[2021-10-23] MEDS ORDERED: DexAMETHasone SOD PHOS 10MG/1ML VIAL INJ ONE (12:40)
[2021-10-23] MEDS ORDERED: PROPOFOL 10 MG/ML 20 ML IV ONE (12:43)
[2021-10-23] MEDS ORDERED: MIDAZOLAM HCL 2MG/2ML 2ml VIAL (1mg/ml) IV PRN (13:00)
[2021-10-23] MEDS ORDERED: ePHEDrine SULFATE 50 MG/ML AMP IV PRN (13:00)
[2021-10-23] MEDS ORDERED: MORPHINE SULFATE 4 MG/ML SYR/VIAL IV PRN (13:00)
[2021-10-23] MEDS ORDERED: LABETALOL HCL 5 MG/ML 4ML SYRINGE IV PRN (13:00)
[2021-10-23] MEDS ORDERED: ONDANSETRON HCL 4 MG/2 ML VIAL IV PRN (13:00)
[2021-10-23] MEDS ORDERED: HYDROmorphone HCL 2 MG/ML VL IV PRN (13:00)
[2021-10-23 17:00] VITALS: BP 133/76
[2021-10-23 19:35] VITALS: BP 115/64
[2021-10-23] MEDS: ATORVASTATIN 20 MG TAB PO SCH (21:57)
[2021-10-23 22:00] VITALS: BP 115/64
[2021-10-24] MEDS: InsuLIN REG 1unit/0.01ml Soln (100units/ml) SC SCH ×6 (00:23→20:10)
[2021-10-24] MEDS: ACCU-CHEK COMFORT CURVE STRIP VI SCH ×6 (04:17→20:07)
[2021-10-24 05:00] VITALS: BP 141/79
[2021-10-24] MEDS: GABAPENTIN 300 MG CAP PO SCH ×3 (05:15→21:17)
[2021-10-24] MEDS: ceFAZolin 1GM/50ML 50 ML IV SCH ×3 (05:26→21:16)
[2021-10-24 06:24] LABS: Potassium 4.3 mmol/L (3.5-5.1)
[2021-10-24 06:27] LABS: INR 1.31 (0.9-1.15); Partial Thromboplastin Time 38.4 sec (23.6-33.0)
[2021-10-24 06:31] LABS: BUN/Creatinine Ratio 38.1; Calcium 7.5 mg/dL (8.5-10.1)
[2021-10-24 06:35] LABS: Basophils # (auto) 0 10 ^3/uL (0-0.2); Basophils % (auto) 0.2 % (0.0-2.0); Eosinophils # (auto) 0 10 ^3/uL (0-0.8); Eosinophils % (auto) 0.1 % (0.0-7.0); Hematocrit 28.8 % (41.0-53.0); Hemoglobin 9.8 g/dL (13.5-17.5); Lymphocytes # (auto) 1.3 10 ^3/uL (0.4-5.4); Lymphocytes % (auto) 8.6 % (10.0-50.0); Mean Corpuscular Hemoglobin 28.4 pg (28.0-32.0); Mean Corpuscular Hgb Conc. 33.9 g/dL (32.0-36.0); Mean Corpuscular Volume 83.8 fL (80.0-100.0); Monocytes # (auto) 0.8 10 ^3/uL (0-1.3); Monocytes % (auto) 5.4 % (0.0-12.0); Neutrophils # (auto) 13.1 10 ^3/uL (1.6-8.6); Neutrophils % (auto) 85.7 % (37.0-80.0); Red Blood Cells 3.43 10^6/uL (4.5-5.90); Red Cell Distribution Width 13.7 % (11.8-14.3); White Blood Cell 15.3 10^3/uL (4.4-10.8)
[2021-10-24 09:00] VITALS: BP 121/62
[2021-10-24] MEDS: RIVAROXABAN 10 MG TAB PO SCH ×2 (10:30→21:17)
[2021-10-24] MEDS: ASPirin 81 mg TAB PO SCH (10:31)
[2021-10-24] MEDS: SODIUM CHLOR 0.9% PF (SALINE LOCK) 10ML VIAL/SYR IV SCH ×2 (10:41→21:24)
[2021-10-24 13:00] VITALS: BP 125/69
[2021-10-24] MEDS ORDERED: fentaNYL CITRATE 100 MCG/2 ML VL IV ONE (14:00)
[2021-10-24] MEDS ORDERED: MIDAZOLAM HCL 2MG/2ML 2ml VIAL (1mg/ml) IV ONE (14:00)
[2021-10-24] MEDS ORDERED: LIDOCAINE 2%HCL (LOCAL ANESTH.) INJ 20ML MDV ONE (14:36)
[2021-10-24 17:00] VITALS: BP 129/72
[2021-10-24] MEDS: DOCUSATE SOD 100 MG CAP PO PRN (17:18)
[2021-10-24 19:30] VITALS: BP_SYST 115; BP_SYST 161; BP_DIAS 64; BP_DIAS 83
[2021-10-24] MEDS: ATORVASTATIN 20 MG TAB PO SCH (21:16)
[2021-10-24 22:00] VITALS: BP 161/83
[2021-10-24] MEDS: ACETAMINOPHEN 325 MG TAB PO PRN (22:16)
[2021-10-25] MEDS: ACCU-CHEK COMFORT CURVE STRIP VI SCH ×6 (00:02→20:55)
[2021-10-25] MEDS: InsuLIN REG 1unit/0.01ml Soln (100units/ml) SC SCH ×6 (00:05→20:55)
[2021-10-25 05:00] VITALS: BP 106/58
[2021-10-25] MEDS: ceFAZolin 1GM/50ML 50 ML IV SCH (05:51)
[2021-10-25] MEDS: GABAPENTIN 300 MG CAP PO SCH ×3 (05:52→21:00)
[2021-10-25 09:00] VITALS: BP 132/77
[2021-10-25] MEDS: SODIUM CHLOR 0.9% PF (SALINE LOCK) 10ML VIAL/SYR IV SCH ×2 (09:04→21:00)
[2021-10-25] MEDS: ASPirin 81 mg TAB PO SCH (09:04)
[2021-10-25] MEDS: RIVAROXABAN 10 MG TAB PO SCH ×2 (09:05→21:00)
[2021-10-25] MEDS ORDERED: levoFLOXacin 500MG 100 ML IV ONE (12:30)
[2021-10-25 13:00] VITALS: BP 140/78
[2021-10-25] MEDS: DOCUSATE SOD 100 MG CAP PO PRN (16:54)
[2021-10-25 17:00] VITALS: BP 151/84
[2021-10-25] MEDS ORDERED: LACTULOSE 20Gm/30ML SOLN PO PRN (18:34)
[2021-10-25] MEDS: ATORVASTATIN 20 MG TAB PO SCH (21:00)
[2021-10-25 22:00] VITALS: BP 145/82
[2021-10-26] MEDS: ACCU-CHEK COMFORT CURVE STRIP VI SCH ×6 (00:02→22:00)
[2021-10-26] MEDS: InsuLIN REG 1unit/0.01ml Soln (100units/ml) SC SCH ×5 (00:03→17:25)
[2021-10-26] MEDS: GABAPENTIN 300 MG CAP PO SCH ×3 (06:11→22:00)
[2021-10-26 09:03] VITALS: BP 133/72
[2021-10-26] MEDS: levoFLOXacin 500MG 100 ML IV SCH (09:20)
[2021-10-26] MEDS: ASPirin 81 mg TAB PO SCH (09:21)
[2021-10-26] MEDS: SODIUM CHLOR 0.9% PF (SALINE LOCK) 10ML VIAL/SYR IV SCH ×2 (09:22→22:00)
[2021-10-26] MEDS: RIVAROXABAN 10 MG TAB PO SCH ×2 (09:22→22:00)
[2021-10-26] MEDS ORDERED: DEXTROSE (50%) 50ML SYRG IV PRN (11:15)
[2021-10-26 12:30] VITALS: BP 136/79
[2021-10-26] MEDS ORDERED: ROPIVACAINE 0.5% (5MG/ML) 20ML AMPULE IJ ONE (13:14)
[2021-10-26] MEDS ORDERED: NEOMYCIN-BACITRACIN-POLYM 15GM TOP OINT TOP ONE (13:55)
[2021-10-26 16:30] VITALS: BP 152/80
[2021-10-26 20:00] VITALS: BP 133/72
[2021-10-26 22:00] VITALS: BP 142/78
[2021-10-26] MEDS: ATORVASTATIN 20 MG TAB PO SCH (22:00)
[2021-10-26] MEDS ORDERED: InsuLIN REG 1unit/0.01ml Soln (100units/ml) SC SCH (22:00)
[2021-10-27] MEDS: HYDROcodone-ACET 5/325MG TAB PO PRN ×2 (04:06→09:14)
[2021-10-27 05:00] VITALS: BP 153/83
[2021-10-27] MEDS: ACCU-CHEK COMFORT CURVE STRIP VI SCH ×2 (06:05→11:55)
[2021-10-27] MEDS: InsuLIN REG 1unit/0.01ml Soln (100units/ml) SC SCH ×2 (06:05→11:55)
[2021-10-27 08:00] VITALS: BP 122/69
[2021-10-27] MEDS: ASPirin 81 mg TAB PO SCH (09:08)
[2021-10-27 09:11] VITALS: BP 122/69
[2021-10-27] MEDS: RIVAROXABAN 10 MG TAB PO SCH (09:15)
[2021-10-27] MEDS: levoFLOXacin 500MG 100 ML IV SCH (09:16)
[2021-10-27] MEDS: SODIUM CHLOR 0.9% PF (SALINE LOCK) 10ML VIAL/SYR IV SCH (09:16)
[2021-10-27] MEDS ORDERED: FLUCONAZOLE 100 MG TAB PO SCH (10:00)
[2021-10-27] MEDS: GABAPENTIN 300 MG CAP PO SCH ×2 (11:49→11:56)
[2021-10-27 13:03] VITALS: BP 126/71
[2021-10-27 15:00] VITALS: BP 126/71
== END 2021-10-27 15:20 | DRG 710 ==
LOC: ER 15:09 → OVERFLOW 15:10 → WEST WING 23:20
PROVIDERS: ADMIT Hospitalist; ATTEND Family Medicine
PROC: 02HV33Z Insertion of Infusion Device into Superior Vena Cava, Percutaneous Approach (ICD-10-PCS; 2021-10-09)
PROC: 047Q3ZZ Dilation of Left Anterior Tibial Artery, Percutaneous Approach (ICD-10-PCS; 2021-10-10)
PROC: B41GYZZ Fluoroscopy of Left Lower Extremity Arteries using Other Contrast (ICD-10-PCS; 2021-10-10)
PROC: B41FYZZ Fluoroscopy of Right Lower Extremity Arteries using Other Contrast (ICD-10-PCS; 2021-10-10)
PROC: 047U3Z1 Dilation of Left Peroneal Artery using Drug-Coated Balloon, Percutaneous Approach (ICD-10-PCS; 2021-10-10)
PROC: 047S3Z1 Dilation of Left Posterior Tibial Artery using Drug-Coated Balloon, Percutaneous Approach (ICD-10-PCS; 2021-10-10)
PROC: 04CU3ZZ Extirpation of Matter from Left Peroneal Artery, Percutaneous Approach (ICD-10-PCS; 2021-10-10)
PROC: 04CS3ZZ Extirpation of Matter from Left Posterior Tibial Artery, Percutaneous Approach (ICD-10-PCS; 2021-10-10)
PROC: 0QBM0ZZ Excision of Left Tarsal, Open Approach (ICD-10-PCS; principal; 2021-10-10 11:45)
PROC: 047P3Z1 Dilation of Right Anterior Tibial Artery using Drug-Coated Balloon, Percutaneous Approach (ICD-10-PCS; 2021-10-12)
PROC: 047R3Z1 Dilation of Right Posterior Tibial Artery using Drug-Coated Balloon, Percutaneous Approach (ICD-10-PCS; 2021-10-12)
PROC: 047T3Z1 Dilation of Right Peroneal Artery using Drug-Coated Balloon, Percutaneous Approach (ICD-10-PCS; 2021-10-12)
PROC: B41FYZZ Fluoroscopy of Right Lower Extremity Arteries using Other Contrast (ICD-10-PCS; 2021-10-12)
PROC: B41GYZZ Fluoroscopy of Left Lower Extremity Arteries using Other Contrast (ICD-10-PCS; 2021-10-12)
PROC: 0QBM0ZZ Excision of Left Tarsal, Open Approach (ICD-10-PCS; 2021-10-23)
PROC: 3E053GC Introduction of Other Therapeutic Substance into Peripheral Artery, Percutaneous Approach (ICD-10-PCS; 2021-10-24)
DX: A41.9 Sepsis, unspecified organism (principal); N17.0 Acute kidney failure with tubular necrosis; E44.0 Moderate protein-calorie malnutrition; L97.429 Non-pressure chronic ulcer of left heel and midfoot with unspecified severity; D63.8 Anemia in other chronic diseases classified elsewhere; L97.529 Non-pressure chronic ulcer of other part of left foot with unspecified severity; E11.621 Type 2 diabetes mellitus with foot ulcer; E11.51 Type 2 diabetes mellitus with diabetic peripheral angiopathy without gangrene; E11.69 Type 2 diabetes mellitus with other specified complication; E11.622 Type 2 diabetes mellitus with other skin ulcer; M86.8X7 Other osteomyelitis, ankle and foot; I10 Essential (primary) hypertension; I70.201 Unspecified atherosclerosis of native arteries of extremities, right leg; E78.5 Hyperlipidemia, unspecified; F17.210 Nicotine dependence, cigarettes, uncomplicated; I72.4 Aneurysm of artery of lower extremity; F12.90 Cannabis use, unspecified, uncomplicated; Z20.822 Contact with and (suspected) exposure to COVID-19; Z68.25 Body mass index [BMI] 25.0-25.9, adult; Z79.4 Long term (current) use of insulin; Z98.62 Peripheral vascular angioplasty status; Z91.041 Radiographic dye allergy status; Z82.49 Family history of ischemic heart disease and other diseases of the circulatory system; Z83.3 Family history of diabetes mellitus; Z91.19 Patient's noncompliance with other medical treatment and regimen
CPT/HCPCS: 36415; 36569; 37228; 37229; 71045; 73630; 73700; 73718; 75716; 76881; 76942; 80048; 80053; 80061; 80202; 82565; 82962; 83036; 83605; 83735; 84132; 85025; 85610; 85730; 87040; 87070; 87075; 87077; 87081; 87186; 87205; 87426; 93005; 93306; 93926; 96365; 96367; 96375; 97110; 97116; 97530; 99152; 99153; C1725; C1769; G0378; J0690; J1100; J1815; J1956; J2250; J2405; J2543; J2704; J3490; Q9967

== ENCOUNTER 2021-11-22 19:34 | Emergency (ER) | payer MEDICAID ==
[~2021-11-22] VITALS: Ht 177.8 cm; Wt 81.2 kg
[~2021-11-22 19:34] MED LIST: INSUINJ37 SC; METF-869 PO
[2021-11-23 01:22] LABS: Basophils # (auto) 0.1 10 ^3/uL (0-0.2); Basophils % (auto) 0.6 % (0.0-2.0); Eosinophils # (auto) 0.2 10 ^3/uL (0-0.8); Eosinophils % (auto) 1.7 % (0.0-7.0); Hematocrit 31.3 % (41.0-53.0); Hemoglobin 10.3 g/dL (13.5-17.5); Lymphocytes # (auto) 1.1 10 ^3/uL (0.4-5.4); Lymphocytes % (auto) 10.7 % (10.0-50.0); Mean Corpuscular Hemoglobin 27.8 pg (28.0-32.0); Mean Corpuscular Hgb Conc. 33.1 g/dL (32.0-36.0); Monocytes # (auto) 0.6 10 ^3/uL (0-1.3); Monocytes % (auto) 5.6 % (0.0-12.0); Neutrophils # (auto) 8.6 10 ^3/uL (1.6-8.6); Neutrophils % (auto) 81.4 % (37.0-80.0); Nucleated Red Blood Cells % 0.2 %; Red Blood Cells 3.72 10^6/uL (4.5-5.90); White Blood Cell 10.6 10^3/uL (4.4-10.8)
[2021-11-23 01:41] LABS: Albumin 2.3 g/dL (3.4-5.0); Calcium 8.1 mg/dL (8.5-10.1); Potassium 4.4 mmol/L (3.5-5.1)
[2021-11-23 01:43] LABS: BUN/Creatinine Ratio 34.9
[2021-11-23 01:46] LABS: Bilirubin, Total 0.2 mg/dL (0.2-1.0); Total Protein 5.9 g/dL (6.4-8.2)
[2021-11-23 05:14] VITALS: BP 164/84
[2021-11-25] MEDS ORDERED: SUCCINYLCHOLINE CHLORIDE 20 MG/ML 10ML VIAL IV ONE (13:12)
[2021-11-25] MEDS ORDERED: ETOMIDATE (2MG/ML) 20ML VIAL IV ONE (13:12)
== END 2021-11-23 04:50 | disposition home or self-care (01) ==
LOC: ER 19:34 → EDBD 19:34 → ER 11-23 04:50
DX: E10.621 Type 1 diabetes mellitus with foot ulcer (principal); E10.65 Type 1 diabetes mellitus with hyperglycemia; D64.9 Anemia, unspecified; E78.5 Hyperlipidemia, unspecified; F17.210 Nicotine dependence, cigarettes, uncomplicated; Z79.899 Other long term (current) drug therapy; Z79.4 Long term (current) use of insulin; Z88.8 Allergy status to other drugs, medicaments and biological substances
CPT/HCPCS: 36415; 80053; 85025; J0330

== ENCOUNTER 2021-11-27 00:39 | Emergency (ER) | payer MEDICAID ==
[~2021-11-27] VITALS: Ht 175.3 cm; Wt 81.2 kg
[2021-11-27 01:52] LABS: Basophils # (auto) 0 10 ^3/uL (0-0.2); Basophils % (auto) 0.8 % (0.0-2.0); Eosinophils # (auto) 0.2 10 ^3/uL (0-0.8); Eosinophils % (auto) 4.4 % (0.0-7.0); Hematocrit 30.2 % (41.0-53.0); Hemoglobin 10.1 g/dL (13.5-17.5); Lymphocytes # (auto) 1.2 10 ^3/uL (0.4-5.4); Lymphocytes % (auto) 23.1 % (10.0-50.0); Mean Corpuscular Hemoglobin 27.9 pg (28.0-32.0); Mean Corpuscular Hgb Conc. 33.5 g/dL (32.0-36.0); Mean Corpuscular Volume 83.3 fL (80.0-100.0); Monocytes # (auto) 0.6 10 ^3/uL (0-1.3); Monocytes % (auto) 10.9 % (0.0-12.0); Neutrophils # (auto) 3.1 10 ^3/uL (1.6-8.6); Neutrophils % (auto) 60.8 % (37.0-80.0); Nucleated Red Blood Cells % 0.1 %; Red Blood Cells 3.62 10^6/uL (4.5-5.90); White Blood Cell 5.2 10^3/uL (4.4-10.8)
[2021-11-27 02:05] LABS: Albumin 2.2 g/dL (3.4-5.0); BUN/Creatinine Ratio 22.6; Calcium 8.2 mg/dL (8.5-10.1); Potassium 3.8 mmol/L (3.5-5.1)
[2021-11-27 02:08] LABS: Bilirubin, Total 0.2 mg/dL (0.2-1.0)
[2021-11-29] MEDS ORDERED: DEXTROSE (50%) 50ML SYRG IV PRN ×2 (11:15→13:15)
[2021-11-29] MEDS ORDERED: InsuLIN REG 1unit/0.01ml Soln (100units/ml) SC SCH (11:30)
[2021-11-29] MEDS ORDERED: ACCU-CHEK COMFORT CURVE STRIP VI SCH (11:30)
[2021-11-29] MEDS ORDERED: ONDANSETRON HCL 4 MG/2 ML VIAL IV ONE (12:30)
[2021-11-29] MEDS: InsuLIN REG 1unit/0.01ml Soln (100units/ml) SC SCH ×3 (14:11→19:53)
[2021-11-29] MEDS: ACCU-CHEK COMFORT CURVE STRIP VI SCH ×2 (17:00→22:11)
[2021-11-29] MEDS ORDERED: HYDROcodone-ACET 10/325MG TAB PO ONE (19:45)
[2021-11-30] MEDS: ACCU-CHEK COMFORT CURVE STRIP VI SCH ×2 (09:15→11:30)
[2021-11-30] MEDS: InsuLIN REG 1unit/0.01ml Soln (100units/ml) SC SCH ×2 (09:23→11:30)
[2021-11-30 16:32] VITALS: BP 94/66
== END 2021-11-30 17:02 | disposition home or self-care (01) ==
LOC: EDBD 00:39 → EDUNIT# 00:39 → ER 00:42
DX: R79.9 Abnormal finding of blood chemistry, unspecified (principal); I10 Essential (primary) hypertension; E11.9 Type 2 diabetes mellitus without complications; F17.210 Nicotine dependence, cigarettes, uncomplicated; Z20.822 Contact with and (suspected) exposure to COVID-19; Z79.4 Long term (current) use of insulin; Z79.899 Other long term (current) drug therapy; Z88.8 Allergy status to other drugs, medicaments and biological substances
CPT/HCPCS: 36415; 71045; 80053; 82962; 85025; 87426; 97163; 99285; C9803; J2405; U0003

== ENCOUNTER 2022-01-21 09:04 | Inpatient (IN) | payer MEDICAID ==
[~2022-01-21] VITALS: Ht 177.8 cm; Wt 86.4 kg
[2022-01-21] MEDS ORDERED: VANCOMYCIN 1GM/250ML 250 ML IV ONE (13:00)
[2022-01-21] MEDS ORDERED: CLINDAMYCIN 300MG IV 50 ML IV ONE (13:00)
[2022-01-21] MEDS ORDERED: SODIUM CHLORIDE 0.9% 1,000 ML IV ONE ×2 (13:15)
[2022-01-21 13:55] LABS: Basophils # (auto) 0.1 10 ^3/uL (0-0.2); Basophils % (auto) 0.7 % (0.0-2.0); Eosinophils # (auto) 0.2 10 ^3/uL (0-0.8); Eosinophils % (auto) 2.6 % (0.0-7.0); Hemoglobin 11.4 g/dL (13.5-17.5); Lymphocytes # (auto) 1.6 10 ^3/uL (0.4-5.4); Lymphocytes % (auto) 18.6 % (10.0-50.0); Mean Corpuscular Hemoglobin 28.1 pg (28.0-32.0); Mean Corpuscular Hgb Conc. 33.6 g/dL (32.0-36.0); Mean Corpuscular Volume 83.7 fL (80.0-100.0); Monocytes # (auto) 0.6 10 ^3/uL (0-1.3); Monocytes % (auto) 6.8 % (0.0-12.0); Neutrophils # (auto) 6.2 10 ^3/uL (1.6-8.6); Neutrophils % (auto) 71.3 % (37.0-80.0); Nucleated Red Blood Cells % 0.1 %; Red Blood Cells 4.06 10^6/uL (4.5-5.90); Red Cell Distribution Width 16.7 % (11.8-14.3); White Blood Cell 8.7 10^3/uL (4.4-10.8)
[2022-01-21 14:09] LABS: Partial Thromboplastin Time 27.7 sec (23.6-33.0)
[2022-01-21 14:14] LABS: Potassium 3.8 mmol/L (3.5-5.1)
[2022-01-21 14:21] LABS: Albumin 2.5 g/dL (3.4-5.0); BUN/Creatinine Ratio 35.7; Bilirubin, Total 0.3 mg/dL (0.2-1.0); Calcium 8.8 mg/dL (8.5-10.1); Total Protein 6.3 g/dL (6.4-8.2)
[2022-01-21] MEDS ORDERED: ACETAMINOPHEN 325 MG TAB PO PRN (16:30)
[2022-01-21] MEDS ORDERED: MORPHINE SULFATE 4 MG/ML SYR/VIAL IV PRN (16:30)
[2022-01-21] MEDS ORDERED: NITROGLYCERIN 0.4 MG SL TAB SL PRN (16:30)
[2022-01-21] MEDS ORDERED: DEXTROSE (50%) 50ML SYRG IV PRN (16:30)
[2022-01-21] MEDS ORDERED: ONDANSETRON HCL 4 MG/2 ML VIAL IV PRN (16:30)
[2022-01-21] MEDS ORDERED: MORPHINE SULFATE INJECTION 2 MG/ML SYRG IV PRN (16:30)
[2022-01-21] MEDS ORDERED: VANCOMYCIN PER PHARMACY 0 MG IV SCH (16:30)
[2022-01-21] MEDS: ACCU-CHEK COMFORT CURVE STRIP VI SCH ×2 (17:00→22:30)
[2022-01-21 17:30] VITALS: BP 171/98
[2022-01-21] MEDS: PIPERACILLIN-TAZOB 3.375GM 100 ML IV SCH ×2 (18:00→23:56)
[2022-01-21] MEDS: InsuLIN REG 1unit/0.01ml Soln (100units/ml) SC SCH ×2 (18:15→22:30)
[2022-01-21 18:44] VITALS: BP 158/90
[2022-01-21] MEDS ORDERED: hydrALAZINE HCL 20 MG/ML VL IV PRN (19:15)
[2022-01-21 20:00] VITALS: BP 168/79
[2022-01-21 22:00] VITALS: BP 168/79
[2022-01-22] MEDS: VANCOMYCIN 1GM/250ML 250 ML IV SCH ×2 (03:58→16:22)
[2022-01-22 05:00] VITALS: BP 147/83
[2022-01-22] MEDS: ACCU-CHEK COMFORT CURVE STRIP VI SCH ×4 (06:29→22:01)
[2022-01-22] MEDS: PIPERACILLIN-TAZOB 3.375GM 100 ML IV SCH ×2 (06:29→19:00)
[2022-01-22] MEDS: InsuLIN REG 1unit/0.01ml Soln (100units/ml) SC SCH ×5 (06:30→22:01)
[2022-01-22 08:00] VITALS: BP 118/49
[2022-01-22 09:23] VITALS: BP 118/49
[2022-01-22] MEDS: ENOXAPARIN SOD 40 MG/0.4 ML SYRINGE SC SCH (09:48)
[2022-01-22 10:14] LABS: Basophils # (auto) 0.1 10 ^3/uL (0-0.2); Basophils % (auto) 1.2 % (0.0-2.0); Eosinophils # (auto) 0.3 10 ^3/uL (0-0.8); Eosinophils % (auto) 3.5 % (0.0-7.0); Hematocrit 35.2 % (41.0-53.0); Hemoglobin 11.6 g/dL (13.5-17.5); Lymphocytes # (auto) 1.6 10 ^3/uL (0.4-5.4); Lymphocytes % (auto) 20.7 % (10.0-50.0); Mean Corpuscular Hemoglobin 27.7 pg (28.0-32.0); Mean Corpuscular Hgb Conc. 33.1 g/dL (32.0-36.0); Mean Corpuscular Volume 83.8 fL (80.0-100.0); Monocytes # (auto) 0.6 10 ^3/uL (0-1.3); Monocytes % (auto) 8.1 % (0.0-12.0); Neutrophils % (auto) 66.5 % (37.0-80.0); Red Cell Distribution Width 16.6 % (11.8-14.3); White Blood Cell 7.6 10^3/uL (4.4-10.8)
[2022-01-22 12:22] VITALS: BP 93/57
[2022-01-22 16:36] VITALS: BP 125/76
[2022-01-22 22:00] VITALS: BP 149/75
[2022-01-23 02:58] LABS: Basophils # (auto) 0.1 10 ^3/uL (0-0.2); Basophils % (auto) 1.5 % (0.0-2.0); Eosinophils # (auto) 0.3 10 ^3/uL (0-0.8); Eosinophils % (auto) 4.7 % (0.0-7.0); Hematocrit 34.1 % (41.0-53.0); Hemoglobin 11.8 g/dL (13.5-17.5); Lymphocytes # (auto) 2.1 10 ^3/uL (0.4-5.4); Lymphocytes % (auto) 31.2 % (10.0-50.0); Mean Corpuscular Hemoglobin 28.5 pg (28.0-32.0); Mean Corpuscular Hgb Conc. 34.5 g/dL (32.0-36.0); Mean Corpuscular Volume 82.6 fL (80.0-100.0); Monocytes # (auto) 0.6 10 ^3/uL (0-1.3); Monocytes % (auto) 9.2 % (0.0-12.0); Neutrophils # (auto) 3.6 10 ^3/uL (1.6-8.6); Neutrophils % (auto) 53.4 % (37.0-80.0); Red Blood Cells 4.12 10^6/uL (4.5-5.90); Red Cell Distribution Width 16.8 % (11.8-14.3); White Blood Cell 6.8 10^3/uL (4.4-10.8)
[2022-01-23 03:41] LABS: BUN/Creatinine Ratio 24.7; Calcium 8.2 mg/dL (8.5-10.1); Potassium 3.8 mmol/L (3.5-5.1)
[2022-01-23] MEDS: VANCOMYCIN 1GM/250ML 250 ML IV SCH ×3 (04:00→20:51)
[2022-01-23 05:00] VITALS: BP 145/88
[2022-01-23] MEDS: PIPERACILLIN-TAZOB 3.375GM 100 ML IV SCH ×4 (06:00→18:00)
[2022-01-23] MEDS: InsuLIN REG 1unit/0.01ml Soln (100units/ml) SC SCH ×4 (06:34→23:02)
[2022-01-23] MEDS: ACCU-CHEK COMFORT CURVE STRIP VI SCH ×4 (06:34→22:55)
[2022-01-23] MEDS ORDERED: ROPIVACAINE 0.5% (5MG/ML) 20ML AMPULE IJ ONE (08:32)
[2022-01-23] MEDS ORDERED: ceFAZolin 1GM VL ONE (08:32)
[2022-01-23] MEDS ORDERED: ceFAZolin 1GM/50ML 100 ML IV ONE (08:39)
[2022-01-23] MEDS ORDERED: CHLORHEXIDINE 4% TOPICAL soln 118ml TOP ONE (08:45)
[2022-01-23 09:00] VITALS: BP 104/68
[2022-01-23] MEDS ORDERED: MIDAZOLAM HCL 2MG/2ML 2ml VIAL (1mg/ml) ONE (09:01)
[2022-01-23] MEDS ORDERED: MEPERIDINE HCL (25 MG/ML) 1ML VIAL ONE (09:01)
[2022-01-23] MEDS ORDERED: fentaNYL CITRATE 100 MCG/2 ML VL ONE (09:01)
[2022-01-23] MEDS ORDERED: DexAMETHasone SOD PHOS 10MG/1ML VIAL INJ ONE (09:38)
[2022-01-23] MEDS ORDERED: PROPOFOL 10 MG/ML 20 ML IV ONE (09:38)
[2022-01-23] MEDS ORDERED: hydrALAZINE HCL 20 MG/ML VL IV PRN (10:00)
[2022-01-23] MEDS ORDERED: MIDAZOLAM HCL 2MG/2ML 2ml VIAL (1mg/ml) IV PRN (10:00)
[2022-01-23] MEDS ORDERED: HYDROmorphone HCL 2 MG/ML VL IV PRN (10:00)
[2022-01-23] MEDS ORDERED: LABETALOL HCL 5 MG/ML 4ML SYRINGE IV PRN (10:00)
[2022-01-23] MEDS ORDERED: ePHEDrine SULFATE 50 MG/ML AMP IV PRN (10:00)
[2022-01-23] MEDS ORDERED: ONDANSETRON HCL 4 MG/2 ML VIAL IV PRN (10:00)
[2022-01-23] MEDS: ENOXAPARIN SOD 40 MG/0.4 ML SYRINGE SC SCH (10:00)
[2022-01-23] MEDS ORDERED: MORPHINE SULFATE 4 MG/ML SYR/VIAL IV PRN (10:00)
[2022-01-23 13:00] VITALS: BP 92/63
[2022-01-23 16:55] VITALS: BP 94/52
[2022-01-23] MEDS: HYDROcodone-ACET 5/325MG TAB PO PRN (20:51)
[2022-01-23 22:00] VITALS: BP 143/78
[2022-01-24] MEDS: PIPERACILLIN-TAZOB 3.375GM 100 ML IV SCH ×4 (00:35→17:25)
[2022-01-24 03:34] LABS: Calcium 8.5 mg/dL (8.5-10.1); Potassium 3.9 mmol/L (3.5-5.1)
[2022-01-24] MEDS: VANCOMYCIN 1GM/250ML 250 ML IV SCH (03:42)
[2022-01-24 05:00] VITALS: BP 141/80
[2022-01-24] MEDS: ACCU-CHEK COMFORT CURVE STRIP VI SCH ×4 (06:05→21:53)
[2022-01-24] MEDS: InsuLIN REG 1unit/0.01ml Soln (100units/ml) SC SCH ×5 (07:01→21:57)
[2022-01-24 09:00] VITALS: BP 120/75
[2022-01-24] MEDS: ENOXAPARIN SOD 40 MG/0.4 ML SYRINGE SC SCH (09:53)
[2022-01-24] MEDS: HYDROcodone-ACET 5/325MG TAB PO PRN ×2 (10:05→21:53)
[2022-01-24] MEDS ORDERED: VANCOMYCIN 1GM/250ML 250 ML IV SCH (11:15)
[2022-01-24 13:00] VITALS: BP_SYST 120; BP_SYST 148; BP_DIAS 75; BP_DIAS 82
[2022-01-24] MEDS: GABAPENTIN 300 MG CAP PO SCH ×2 (13:38→21:52)
[2022-01-24 17:00] VITALS: BP 146/82
[2022-01-24 22:18] VITALS: BP 120/70
[2022-01-25] MEDS: PIPERACILLIN-TAZOB 3.375GM 100 ML IV SCH ×4 (00:05→18:38)
[2022-01-25 04:26] VITALS: BP 130/72
[2022-01-25] MEDS: GABAPENTIN 300 MG CAP PO SCH ×3 (06:03→22:08)
[2022-01-25] MEDS: ACCU-CHEK COMFORT CURVE STRIP VI SCH ×4 (07:05→22:08)
[2022-01-25] MEDS: InsuLIN REG 1unit/0.01ml Soln (100units/ml) SC SCH ×4 (07:06→22:08)
[2022-01-25 09:00] VITALS: BP 124/69
[2022-01-25] MEDS: ENOXAPARIN SOD 40 MG/0.4 ML SYRINGE SC SCH (09:47)
[2022-01-25 13:00] VITALS: BP 119/62
[2022-01-25 17:00] VITALS: BP 134/77
[2022-01-25] MEDS: Juven Fruit Punch Powder PACKET 28.8gm PO SCH (18:38)
[2022-01-25 22:00] VITALS: BP 106/60
[2022-01-26] MEDS: PIPERACILLIN-TAZOB 3.375GM 100 ML IV SCH ×3 (00:07→11:24)
[2022-01-26 05:00] VITALS: BP 133/69
[2022-01-26] MEDS: GABAPENTIN 300 MG CAP PO SCH ×2 (05:56→13:39)
[2022-01-26] MEDS: ACCU-CHEK COMFORT CURVE STRIP VI SCH ×3 (06:46→17:17)
[2022-01-26] MEDS: InsuLIN REG 1unit/0.01ml Soln (100units/ml) SC SCH ×3 (06:48→17:17)
[2022-01-26 09:00] VITALS: BP_SYST 118; BP_SYST 94; BP_DIAS 52; BP_DIAS 73
[2022-01-26] MEDS: Juven Fruit Punch Powder PACKET 28.8gm PO SCH (09:25)
[2022-01-26] MEDS: ENOXAPARIN SOD 40 MG/0.4 ML SYRINGE SC SCH (09:42)
[2022-01-26 13:29] VITALS: BP 118/73
== END 2022-01-26 18:09 | DRG 314 ==
LOC: ER 09:04 → EDBD 09:04 → TELE 16:16 → EAST 17:23
PROVIDERS: ADMIT Internal Medicine; ATTEND Internal Medicine
PROC: 0QBM0ZZ Excision of Left Tarsal, Open Approach (ICD-10-PCS; principal; 2022-01-23 09:06)
DX: E11.69 Type 2 diabetes mellitus with other specified complication (principal); M86.672 Other chronic osteomyelitis, left ankle and foot; E11.621 Type 2 diabetes mellitus with foot ulcer; L97.429 Non-pressure chronic ulcer of left heel and midfoot with unspecified severity; E11.42 Type 2 diabetes mellitus with diabetic polyneuropathy; Z91.041 Radiographic dye allergy status; F12.90 Cannabis use, unspecified, uncomplicated; Z20.822 Contact with and (suspected) exposure to COVID-19; F17.210 Nicotine dependence, cigarettes, uncomplicated; I10 Essential (primary) hypertension; Z82.49 Family history of ischemic heart disease and other diseases of the circulatory system; Z83.3 Family history of diabetes mellitus
CPT/HCPCS: 36415; 71045; 73700; 80048; 80053; 80202; 82565; 82962; 83605; 84484; 85025; 85610; 85730; 87040; 87070; 87075; 87077; 87081; 87186; 87205; 87426; 96361; 96365; 96367; G0378; J0690; J1100; J1815; J2250; J2543; J2704; J3490

== ENCOUNTER 2022-04-06 18:18 | Emergency (ER) | payer MEDICAID ==
[~2022-04-06] VITALS: Ht 177.8 cm; Wt 72.6 kg
[2022-04-06 19:54] VITALS: BP 159/89
[2022-04-06 21:16] LABS: Basophils # (auto) 0.1 10 ^3/uL (0-0.2); Basophils % (auto) 1.3 % (0.0-2.0); Eosinophils # (auto) 0.4 10 ^3/uL (0-0.8); Eosinophils % (auto) 5.2 % (0.0-7.0); Hematocrit 34.5 % (41.0-53.0); Hemoglobin 11.8 g/dL (13.5-17.5); Lymphocytes # (auto) 1.8 10 ^3/uL (0.4-5.4); Lymphocytes % (auto) 25.9 % (10.0-50.0); Mean Corpuscular Hemoglobin 29.4 pg (28.0-32.0); Mean Corpuscular Hgb Conc. 34.1 g/dL (32.0-36.0); Mean Corpuscular Volume 86.1 fL (80.0-100.0); Monocytes # (auto) 0.7 10 ^3/uL (0-1.3); Monocytes % (auto) 10.7 % (0.0-12.0); Neutrophils % (auto) 56.9 % (37.0-80.0); Nucleated Red Blood Cells % 0.1 %; Red Blood Cells 4.01 10^6/uL (4.5-5.90); Red Cell Distribution Width 15.4 % (11.8-14.3)
[2022-04-06 21:37] LABS: Albumin 2.4 g/dL (3.4-5.0); BUN/Creatinine Ratio 33.3; Magnesium 2.2 mg/dL (1.6-2.6); Potassium 4.2 mmol/L (3.5-5.1)
[2022-04-06 21:40] LABS: Bilirubin, Total 0.2 mg/dL (0.2-1.0); INR 0.99 (0.9-1.15); Partial Thromboplastin Time 25.7 sec (23.6-33.0)
== END 2022-04-07 00:14 | disposition home or self-care (01) ==
LOC: EDBD 18:18 → ER 18:18
DX: M79.605 Pain in left leg (principal); I10 Essential (primary) hypertension; E11.9 Type 2 diabetes mellitus without complications; F17.210 Nicotine dependence, cigarettes, uncomplicated; Z88.8 Allergy status to other drugs, medicaments and biological substances
CPT/HCPCS: 36415; 71045; 80053; 83735; 83880; 84484; 85025; 85610; 85730; 93005; 93971